=== PATIENT | female | born 1985 | race Caucasian/White ===

== ENCOUNTER 2020-11-12 08:31 | Outpatient (CLI) | payer OTHER ==
[2020-11-12 17:52] LABS: SARS-CoV-2 PCR by NAA Not Detected (NotDetected)
== END 2020-11-12 08:32 | disposition home or self-care (01) ==
LOC: CSHLAB 08:31
PROVIDERS: ATTEND Student in an Organized Health Care Education/Training Program
DX: Z20.822 Contact with and (suspected) exposure to COVID-19 (principal)
CPT/HCPCS: 87635; U0003; U0005

== ENCOUNTER 2023-03-23 10:44 | Emergency (ER) | payer BC ==
[2023-03-23 11:19] LABS: Bilirubin Neg (Negative); Blood, Urine 250 (Negative); Clarity Cloudy (Clear); Glucose, Urine (Dipstick) Normal (Negative); Ketone, Urine 150 mg/dL (Negative); Leukocyte 25 (Negative); Nitrite Negative (Negative); Protein, Urine (Dipstick) 30 mg/dl (Neg-Trace); Specific Gravity, Urine 1.015 (1.005-1.030); Urobilinogen Normal mg/dL (Less than 2)
[2023-03-23 11:21] LABS: Pregnancy Test - Urine (BHCG) Negative (Negative); Pregu Control Background? CLEAR/WHITE (CLR/WHITE); Pregu Control Bar Appear? YES (CONTROL BAR); Specific Gravity 1.015 (1.002-1.036)
[2023-03-23 11:27] LABS: Bacteria/HPF 2+ HPF (None Seen); CAUTI Indications for Culture Pelvic or flank pain; Squamous Epithelial 21-50 HPF (0-3); Urine Culture Reflex No No
[2023-03-23 11:50] LABS: #Monocytes 0.4 10x3/uL (0.0-1.1); #Neutrophils 8.4 10x3/uL (1.5-8.4); %Basophils 0.3 % (0.0-2.0); %Eosinophils 0.3 % (0.0-6.0); %Lymphocytes 10.5 % (18.0-47.0); %Monocytes 3.8 % (0.0-10.0); %Neutrophils 84.6 % (40.0-75.0); Hematocrit 39.7 % (34.9-44.5); Hemoglobin 13.5 g/dL (12.0-15.5); Mean Corpuscular Hemoglobin 29.6 pg (27.0-33.0); Mean Corpuscular Volume 87.1 fl (81.6-98.3); Mean Platelet Volume 10.3 fl (7.4-10.4); Platelet Count 297 10x3/uL (150-450); RBC Distribution Width 13.2 % (11.5-14.5); Red Blood Cell (RBC) Count 4.56 10x6/uL (3.90-5.03); White Blood Cell (WBC) Count 9.9 10x3/uL (3.5-10.5)
[2023-03-23] MEDS ORDERED: Ondansetron PF 4 MG/2 ML Vial ONE ×2 (11:58→13:46)
[2023-03-23] MEDS ORDERED: fentaNYL 50 mcg/mL 1 mL Vial ONE ×3 (11:58→15:12)
[2023-03-23 12:13] LABS: ALT (SGPT) 18 U/L (8-55); AST (SGOT) 24 U/L (5-34); Albumin 4.5 g/dL (3.5-5.0); Alkaline Phosphatase 40 U/L (40-110); Anion Gap 16 mmol/L (10-20); BUN (Urea Nitrogen) 7 mg/dL (7.0-18.7); Bilirubin, Total 0.4 mg/dL (0.2-1.2); Calc. Creatinine Clearance 0 mL/min (70-130); Carbon Dioxide 18 mmol/L (22-29); Chloride 103 mmol/L (98-107); Estimated GFR 116; Globulin 3.1 g/dL (2.4-3.5); Glucose 116 mg/dL (70-105); Potassium 3.5 mmol/L (3.5-5.1); Protein, Total 7.6 g/dL (6.0-8.3); Sodium 133 mmol/L (136-145)
[2023-03-23] MEDS ORDERED: Dicyclomine 20 MG/2 ML VIAL ONE (12:45)
[2023-03-23] MEDS ORDERED: Morphine 4 MG/ML VIAL ONE (13:07)
[2023-03-23] MEDS ORDERED: Piperacillin/Tazobactam 4.5 GM VIAL ONE (13:18)
[2023-03-23] MEDS ORDERED: Bupivacaine PF 0.5% 30 ML VIAL ONE (13:45)
[2023-03-23] MEDS ORDERED: PROPOFOL 20 ML ONE (13:46)
[2023-03-23] MEDS ORDERED: Glycopyrrolate 0.2 MG/ML 5 ML SYRINGE ONE (13:46)
[2023-03-23] MEDS ORDERED: Ketorolac Tromethamine 30 MG/ML VIAL ONE (13:46)
[2023-03-23] MEDS ORDERED: Rocuronium Bromide 10 MG/ML (10ML VIAL) ONE (13:46)
[2023-03-23] MEDS ORDERED: Midazolam HCl 2 mg/2 ml Vial ONE (13:46)
[2023-03-23] MEDS ORDERED: Dexamethasone 20 MG/5 ML VIAL ONE (13:46)
[2023-03-23] MEDS ORDERED: Iopamidol 300 61% 100 ML VIAL FS ONE (14:25)
[2023-03-23] MEDS ORDERED: HYDROcodone/Acetaminophen 7.5/325 mg Tablet PO PRN (15:11)
[2023-03-23] MEDS ORDERED: HYDROcodone/Acetaminophen 5/325 mg Tablet ONE (15:58)
== END 2023-03-23 14:13 | disposition admitted as inpatient to this hospital (09) ==
LOC: CSHERS 10:44
DX: K35.80 Unspecified acute appendicitis (principal)
CPT/HCPCS: 74177; 80053; 81001; 81025; 83690; 85025; 88304; 88305; 88341; 88342; 96365; 96372; 96375; A4649; C1889; J1100; J1885; J2250; J2270; J2405; J2543; J2704; J3010; Q9967; S0020

== ENCOUNTER 2023-04-22 07:47 | Observation (INO) | payer BC ==
[2023-04-21 11:39] VITALS: BMI 25.4
[2023-04-22] MEDS ORDERED: Midazolam HCl 2 mg/2 ml Vial ONE (08:16)
[2023-04-22] MEDS ORDERED: Bupivacaine PF 0.5% 30 ML VIAL ONE (08:16)
[2023-04-22] MEDS ORDERED: EPINEPHrine 1 MG/ML VIAL ONE (08:16)
[2023-04-22] MEDS ORDERED: PROPOFOL 20 ML ONE ×2 (08:22→11:00)
[2023-04-22] MEDS ORDERED: Rocuronium Bromide 10 MG/ML (10ML VIAL) ONE (08:23)
[2023-04-22] MEDS ORDERED: Ondansetron PF 4 MG/2 ML Vial ONE (08:23)
[2023-04-22] MEDS ORDERED: Fentanyl 250 MCG/5 ML VIAL ONE (08:23)
[2023-04-22] MEDS ORDERED: Dexamethasone 4 mg/ml Vial ONE (08:23)
[2023-04-22] MEDS ORDERED: CEFAZOLIN 2 GM VIAL ONE (08:26)
[2023-04-22] MEDS ORDERED: Metoclopramide HCl 10 MG/2 ML VIAL ONE (09:25)
[2023-04-22] MEDS ORDERED: Ketorolac Tromethamine 30 MG/ML VIAL ONE (09:27)
[2023-04-22] MEDS ORDERED: HYDROmorphone 0.5 MG/0.5 ML SYRINGE ONE ×5 (09:44→11:28)
[2023-04-22] MEDS ORDERED: SUGAMMADEX SODIUM 200 MG/2 ML VIAL ONE (09:44)
[2023-04-22] MEDS ORDERED: Promethazine HCl 25 MG/ML VIAL IM PRN ×2 (10:10→11:01)
[2023-04-22] MEDS ORDERED: hydrALAZINE 20 MG/ML VIAL SLOW IVP PRN (10:10)
[2023-04-22] MEDS ORDERED: Acetaminophen 325 MG TAB PO PRN (10:10)
[2023-04-22] MEDS ORDERED: Morphine 4 MG/ML VIAL SLOW IVP PRN (10:10)
[2023-04-22] MEDS ORDERED: Ipratropium/Albuterol 3 ML NEB NEB PRN (10:10)
[2023-04-22] MEDS ORDERED: Morphine 2 MG/ML VIAL SLOW IVP PRN (10:10)
[2023-04-22] MEDS ORDERED: Calcium Carbonate 500 MG ChewTAB PO PRN (10:10)
[2023-04-22] MEDS ORDERED: Mag-Al 1200 mg/1200 mg/30 ML UDCUP PO PRN (10:10)
[2023-04-22] MEDS ORDERED: HYDROcodone/Acetaminophen 10/325 mg Tablet PO PRN ×2 (10:10)
[2023-04-22] MEDS ORDERED: Ondansetron PF 4 MG/2 ML Vial IVP PRN ×2 (10:10→11:01)
[2023-04-22] MEDS ORDERED: diphenhydrAMINE 50 MG/ML VIAL IVP PRN ×2 (10:11→11:01)
[2023-04-22] MEDS ORDERED: diphenhydrAMINE 50 MG/ML VIAL IM PRN (11:01)
[2023-04-22] MEDS ORDERED: Naloxone HCl 0.4 mg/ml Vial IV PRN (11:01)
[2023-04-22] MEDS ORDERED: FENTANYL 500 MCG/10 ML VIAL 1,000 MCG in Sodium Chloride 0.9% 30 ML IV PRN (11:01)
[2023-04-22] MEDS ORDERED: PHENYLEPHRINE-NS 100 MCG/ML 10 ML SYRINGE ONE (11:09)
[2023-04-22] MEDS ORDERED: Communication Order-Pharmacy FS SCH (11:15)
[2023-04-22] MEDS: Ketorolac Tromethamine 30 MG/ML VIAL IVP SCH ×2 (16:21→23:50)
[2023-04-22] MEDS ORDERED: Escitalopram Oxalate 10 mg Tablet PO SCH (21:00)
[2023-04-22] MEDS: Famotidine 20 MG TAB PO SCH (21:41)
[2023-04-22] MEDS: diphenhydrAMINE 25 MG CAP PO PRN (21:44)
[2023-04-23] MEDS: Ketorolac Tromethamine 30 MG/ML VIAL IVP SCH ×2 (06:15→13:21)
[2023-04-23] MEDS: Famotidine 20 MG TAB PO SCH (08:43)
[2023-04-23] MEDS: Simethicone Chewable 80 MG TAB PO PRN ×2 (09:57→16:08)
[2023-04-23] MEDS ORDERED: Senokot S 8.6-50 MG TAB PO SCH (10:00)
[2023-04-23] MEDS ORDERED: HYDROcodone/Acetaminophen 5/325 mg Tablet PO PRN (10:19)
[2023-04-23] MEDS: HYDROcodone/Acetaminophen 5/325 mg Tablet PO PRN ×2 (11:16→16:08)
[2023-04-23] MEDS: diphenhydrAMINE 25 MG CAP PO PRN (11:17)
[2023-04-23] MEDS ORDERED: Senokot S 8.6-50 MG TAB PO PRN (14:49)
[2023-04-23 15:08] VITALS: BP 119/78; TEMP 99
[2023-04-24] MEDS ORDERED: Senokot S 8.6-50 MG TAB PO SCH (09:00)
== END 2023-04-23 16:29 | disposition home or self-care (01) ==
LOC: CSHSDC 07:47 → CSHPED 15:33
PROVIDERS: ADMIT Surgery; ATTEND Surgery
PROC: 0JB80ZZ Excision of Abdomen Subcutaneous Tissue and Fascia, Open Approach (ICD-10-PCS; principal; 2023-04-22)
DX: D48.113 Desmoid tumor of abdominal wall (principal); M72.8 Other fibroblastic disorders
CPT/HCPCS: 88305; J0171; J1100; J1170; J1885; J2250; J2405; J2704; J2765; J3010; S0020

== ENCOUNTER 2023-06-18 10:22 | Day surgery (SDC) | payer BC ==
[2023-06-15 08:57] VITALS: BMI 25.4
[2023-06-18] MEDS ORDERED: Ondansetron PF 4 MG/2 ML Vial ONE (12:39)
[2023-06-18] MEDS ORDERED: fentaNYL 50 mcg/mL 1 mL Vial ONE ×3 (12:39→13:59)
[2023-06-18] MEDS ORDERED: Midazolam HCl 2 mg/2 ml Vial ONE (12:39)
[2023-06-18] MEDS ORDERED: PROPOFOL 20 ML ONE (12:39)
[2023-06-18] MEDS ORDERED: Rocuronium Bromide 10 MG/ML (10ML VIAL) ONE (12:39)
[2023-06-18] MEDS ORDERED: Dexamethasone 20 MG/5 ML VIAL ONE (12:39)
[2023-06-18] MEDS ORDERED: HYDROcodone/Acetaminophen 5/325 mg Tablet ONE (14:23)
== END 2023-06-18 15:25 | disposition home or self-care (01) ==
LOC: CSHSDC 10:22
PROVIDERS: ATTEND Otolaryngology Plastic Surgery within the Head & Neck
PROC: 0CTPXZZ Resection of Tonsils, External Approach (ICD-10-PCS; principal; 2023-06-18)
DX: J35.1 Hypertrophy of tonsils (principal); J35.8 Other chronic diseases of tonsils and adenoids; F41.9 Anxiety disorder, unspecified; Z90.49 Acquired absence of other specified parts of digestive tract; Z98.890 Other specified postprocedural states
CPT/HCPCS: 88304; J1100; J2250; J2405; J2704; J3010